=== PATIENT | female | born 1975 | race Caucasian/White ===

== ENCOUNTER 2020-11-05 14:41 | Emergency (ER) | payer OTHER ==
[~2020-11-05] VITALS: Ht 152.4 cm; Wt 90.7 kg
[2020-11-05 14:43] VITALS: BP 136/89
--- NOTE | 2020-11-05 15:07 | NUR ---
45/FEMALE C/O 2ND TOE OF RIGHT FOOT REDNESS & SWELLING, BLISTER X YESTERDAY. STATES HAVE PAIN WITH WALKING AN HAVE TO PUT PRESSURE ON FOOT SUCH DRIVING. PT STATES "TOOK ALEVE LAST NIGHT. PROVIDED LITTLE RELIEF" PMH: ANGY CEJA
--- NOTE | 2020-11-05 15:23 | NUR ---
WAI Caballeroto at pt bedside for further evaluation.
[2020-11-05] MEDS ORDERED: ACETAMINOPHEN 325 MG TAB PO ONE (15:30)
[2020-11-05] MEDS ORDERED: cefTRIAXone 1,000 MG in LIDOCAINE MPF 1% 2.1 ML IM ONE (15:30)
[2020-11-05] MEDS ORDERED: cefTRIAXone 1,000 MG VIAL ONE (15:31)
[2020-11-05] MEDS ORDERED: LIDOCAINE MPF 1% 5 ML ONE (15:32)
--- NOTE | 2020-11-05 16:05 | NUR ---
CHECKED ON PT. PT CURRENTLY RESTING IN ROOM ON PHONE
[2020-11-05] MEDS ORDERED: CEPH-588 PO (16:10)
[2020-11-05] MEDS ORDERED: IBUP-2213 PO (16:10)
[2020-11-05] MEDS ORDERED: DIPH25TA53 PO (16:10)
[2020-11-05 16:23] VITALS: BP 136/89
--- NOTE | 2020-11-05 16:24 | NUR ---
Patient discharged with v/s stable. Written and verbal after care instructions given and explained. Patient alert, oriented and verbalized understanding of instructions. Ambulatory with steady gait. All questions addressed prior to discharge. ID band removed. Patient advised to follow up with PMD. Rx of CEOHALEXIN 500MG, DIPHENHYDRAMINE 25 MG, AND IBUPROFEN 600 MG given. Patient educated on indication of medication including possible reaction and side effects. Opportunity to ask questions provided and answered.
== END 2020-11-05 16:24 | disposition home or self-care (01) ==
LOC: MED 14:41
DX: L03.031 Cellulitis of right toe (principal); I89.1 Lymphangitis
CPT/HCPCS: 99283; J0696; J2001